=== PATIENT | female | born 1965 | race Caucasian/White ===

== ENCOUNTER 2022-06-23 15:49 | Inpatient (IN) | payer OTHER ==
[2022-06-23 17:01] VITALS: BMI 26.4
[2022-06-23] MEDS ORDERED: BENZOCAINE/MENTHOL (CHLORASEPTIC ) LOZENGE MM PRN (17:30)
[2022-06-23] MEDS ORDERED: MAG HYDROX/AL HYDROX/SIMETH 30 ML UNIT-DOSE CUP PO PRN (17:30)
[2022-06-23] MEDS ORDERED: NALOXONE HCL (KLOXXADO) 8 MG SPRAY NS PRN (17:30)
[2022-06-23] MEDS ORDERED: IBUPROFEN 600 MG TABLET (FP) PO PRN (17:30)
[2022-06-23] MEDS ORDERED: MAGNESIUM HYDROX 2400MG/30ML ORAL SUSPENSION 30 ML CUP PO PRN (17:30)
[2022-06-23] MEDS ORDERED: BISMUTH SUBSALICYLATE 524 MG/30 ML PO PRN (17:30)
[2022-06-23] MEDS ORDERED: POLYETHYLENE GLYCOL (HEALTHYLAX) 3350 17 GM PACKET PO PRN (17:30)
[2022-06-23] MEDS ORDERED: IBUPROFEN 400 MG TABLET (FP) PO PRN (17:30)
[2022-06-23] MEDS ORDERED: DICYCLOMINE HCL 10 MG CAPSULE PO PRN (17:30)
[2022-06-23] MEDS ORDERED: NICOTINE 10 MG CARTRIDGE (INHALER) IH PRN (17:30)
[2022-06-23] MEDS ORDERED: ONDANSETRON *ODT* 4 MG TABLET SL PRN (17:30)
[2022-06-23] MEDS ORDERED: ACETAMINOPHEN 325 MG TABLET (FP) PO PRN (17:30)
[2022-06-23] MEDS ORDERED: chlordiazePOXIDE HCL 25 MG CAPSULE ONE (18:31)
[2022-06-23] MEDS: chlordiazePOXIDE HCL 25 MG CAPSULE PO PRN (18:34)
[2022-06-23] MEDS: MELATONIN 5 MG TABLETS PO SCH (22:13)
[2022-06-23] MEDS: hydrOXYzine PAMOATE 25 MG CAPSULE (FP) PO PRN (22:14)
[2022-06-23] MEDS: THIAMINE HCL 100 MG TABLET (FP) PO SCH (22:14)
[2022-06-23] MEDS: chlordiazePOXIDE HCL 25 MG CAPSULE PO SCH (22:15)
[2022-06-24] MEDS: chlordiazePOXIDE HCL 25 MG CAPSULE PO SCH ×4 (05:36→22:25)
[2022-06-24] MEDS: NICOTINE 21 MG/24 HOURS TOPICAL PATCH TD SCH (10:07)
[2022-06-24] MEDS: PRENATAL VITAMINS W/ FOLIC ACID TABLET (FP) PO SCH (10:07)
[2022-06-24] MEDS: hydrOXYzine PAMOATE 25 MG CAPSULE (FP) PO PRN (10:07)
[2022-06-24] MEDS: chlordiazePOXIDE HCL 25 MG CAPSULE PO PRN (14:04)
[2022-06-24] MEDS: LOPERAMIDE HCL 2 MG CAPSULE PO PRN (14:16)
[2022-06-24 15:18] LABS: HEMATOCRIT 41.8 % (32.4-45.2); HEMOGLOBIN 14.4 GM/dL (10.7-15.3); MCH 36.4 pg (25.7-33.7); MCHC 34.4 g/dl (32.0-36.0); MEAN CELL VOLUME 105.9 fl (80-96); MEAN PLT VOLUME 7.7 fl (7.5-11.1); PLATELET COUNT 347 10^3/uL (134-434); RBC 3.95 M/mm3 (3.60-5.2); RDW 14.6 % (11.6-15.6); WHITE BLOOD COUNT 5.4 K/mm3 (4.0-10.0)
[2022-06-24 15:58] LABS: CALCIUM 9.2 mg/dL (8.5-10.1)
[2022-06-24 15:59] LABS: ALBUMIN 3.7 g/dl (3.4-5.0); BLOOD UREA NITROGEN 8.3 mg/dL (7-18)
[2022-06-24 16:02] LABS: CREATININE 0.6 mg/dL (0.55-1.3)
[2022-06-24 16:04] LABS: BILIRUBIN,TOTAL 0.9 mg/dL (0.2-1); TOT PROT 6.6 g/dl (6.4-8.2)
[2022-06-24] MEDS: THIAMINE HCL 100 MG TABLET (FP) PO SCH (22:25)
[2022-06-24] MEDS: MELATONIN 5 MG TABLETS PO SCH (22:25)
[2022-06-25] MEDS: chlordiazePOXIDE HCL 25 MG CAPSULE PO SCH ×5 (05:22→22:43)
[2022-06-25] MEDS: NICOTINE 21 MG/24 HOURS TOPICAL PATCH TD SCH (10:27)
[2022-06-25] MEDS: PRENATAL VITAMINS W/ FOLIC ACID TABLET (FP) PO SCH (10:27)
[2022-06-25] MEDS: LOPERAMIDE HCL 2 MG CAPSULE PO PRN (14:38)
[2022-06-25] MEDS: hydrOXYzine PAMOATE 25 MG CAPSULE (FP) PO PRN (18:20)
[2022-06-25] MEDS: THIAMINE HCL 100 MG TABLET (FP) PO SCH (22:42)
[2022-06-25] MEDS: MELATONIN 5 MG TABLETS PO SCH (22:42)
[2022-06-26] MEDS ORDERED: chlordiazePOXIDE HCL 10 MG CAPSULE PO PRN
[2022-06-26] MEDS: chlordiazePOXIDE HCL 10 MG CAPSULE PO SCH ×4 (05:31→22:20)
[2022-06-26] MEDS: PRENATAL VITAMINS W/ FOLIC ACID TABLET (FP) PO SCH (10:03)
[2022-06-26] MEDS: NICOTINE 21 MG/24 HOURS TOPICAL PATCH TD SCH (10:03)
[2022-06-26] MEDS: hydrOXYzine PAMOATE 25 MG CAPSULE (FP) PO PRN ×2 (10:07→18:42)
[2022-06-26] MEDS: ACETAMINOPHEN 325 MG TABLET (FP) PO PRN (14:26)
[2022-06-26] MEDS: THIAMINE HCL 100 MG TABLET (FP) PO SCH (22:20)
[2022-06-26] MEDS: MELATONIN 5 MG TABLETS PO SCH (22:20)
[2022-06-27] MEDS: chlordiazePOXIDE HCL 10 MG CAPSULE PO SCH ×2 (05:45→17:11)
[2022-06-27] MEDS: NICOTINE 21 MG/24 HOURS TOPICAL PATCH TD SCH (10:11)
[2022-06-27] MEDS: hydrOXYzine PAMOATE 25 MG CAPSULE (FP) PO PRN ×3 (10:11→22:11)
[2022-06-27] MEDS: PRENATAL VITAMINS W/ FOLIC ACID TABLET (FP) PO SCH (10:11)
[2022-06-27] MEDS: ACETAMINOPHEN 325 MG TABLET (FP) PO PRN (14:30)
[2022-06-27] MEDS: THIAMINE HCL 100 MG TABLET (FP) PO SCH (22:11)
[2022-06-27] MEDS: MELATONIN 5 MG TABLETS PO SCH (22:11)
[2022-06-28] MEDS ORDERED: chlordiazePOXIDE HCL 10 MG CAPSULE PO ONE (05:00)
[2022-06-28 07:22] VITALS: BP 114/72; PULSE 60; RESP 16; TEMP 98
[2022-06-28] MEDS: ACETAMINOPHEN 325 MG TABLET (FP) PO PRN (09:40)
[2022-06-28] MEDS: PRENATAL VITAMINS W/ FOLIC ACID TABLET (FP) PO SCH (09:41)
[2022-06-28] MEDS: NICOTINE 21 MG/24 HOURS TOPICAL PATCH TD SCH (09:41)
== END 2022-06-28 11:32 | disposition home or self-care (01) | DRG 775 ==
LOC: YASAS 15:49 → Y6N 17:50
PROVIDERS: ADMIT Allergy & Immunology; ATTEND Surgery
PROC: HZ2ZZZZ Detoxification Services for Substance Abuse Treatment (ICD-10-PCS; principal; 2022-06-23)
DX: F10.230 Alcohol dependence with withdrawal, uncomplicated (principal); F17.210 Nicotine dependence, cigarettes, uncomplicated; F10.280 Alcohol dependence with alcohol-induced anxiety disorder; F10.282 Alcohol dependence with alcohol-induced sleep disorder; F10.24 Alcohol dependence with alcohol-induced mood disorder; F31.9 Bipolar disorder, unspecified; F41.9 Anxiety disorder, unspecified; E78.5 Hyperlipidemia, unspecified; H90.0 Conductive hearing loss, bilateral; M15.9 Polyosteoarthritis, unspecified; Z96.652 Presence of left artificial knee joint; Z56.0 Unemployment, unspecified
CPT/HCPCS: 36415; 80053; 85027; 86780; 87811; C9803-CS; U0003; U0005

== ENCOUNTER 2023-06-10 14:07 | Emergency (ER) | payer OTHER ==
[2023-06-10] MEDS ORDERED: clonazePAM 0.5 MG TABLET ONE (15:27)
[2023-06-10] MEDS ORDERED: ACETAMINOPHEN INJECTION 100 ML IVPB ONE (15:27)
[2023-06-10] MEDS: clonazePAM 0.5 MG TABLET PO ONE (15:49)
[2023-06-10] MEDS: ACETAMINOPHEN 1000 MG/100 ML BAG IVPB ONE (15:49)
[2023-06-10] MEDS: SODIUM CHLORIDE 0.9% 500 ML INFUS.BAG IV ONE (15:49)
[2023-06-10] MEDS: methylPREDNISolone NA SUCC 125 MG/2 ML VIAL IVPB ONE ×2 (15:49→16:22)
[2023-06-10 15:55] LABS: BASO % 1.1 % (0-2.0); EOS % 1.6 % (0-4.5); HEMATOCRIT 44.1 % (32.4-45.2); HEMOGLOBIN 15.1 GM/dL (10.7-15.3); LYMPH % 39.9 % (8-40); MCH 33.6 pg (25.7-33.7); MCHC 34.2 g/dl (32.0-36.0); MEAN CELL VOLUME 98.3 fl (80-96); MONO % 6.6 % (3.8-10.2); NEUT % 50.8 % (42.8-82.8); PLATELET COUNT 343 10^3/uL (134-434); RBC 4.49 M/mm3 (3.60-5.2); RDW 13.1 % (11.6-15.6); WHITE BLOOD COUNT 8.3 K/mm3 (4.0-10.0)
[2023-06-10 16:00] LABS: VENOUS BASE EXCESS -1.4 mmol/L (-2-2); VENOUS O2 SATURATION 25.7 % (70-80); VENOUS PH 7.341 (7.310-7.410)
[2023-06-10 16:13] VITALS: RESP 21; BMI 37.5
[2023-06-10] MEDS ORDERED: HYDROCORTISONE SOD SUCCINATE 100 MG/2 ML VIAL ONE (16:14)
[2023-06-10 16:24] LABS: POTASSIUM 3.9 mmol/L (3.5-5.1)
[2023-06-10 16:26] LABS: CALCIUM 9.7 mg/dL (8.5-10.1)
[2023-06-10 16:27] LABS: ALBUMIN 4.2 g/dl (3.4-5.0); BLOOD UREA NITROGEN 5.2 mg/dL (7-18)
[2023-06-10 16:30] LABS: CREATININE 0.6 mg/dL (0.55-1.3)
[2023-06-10 16:32] LABS: BILIRUBIN,TOTAL 0.5 mg/dL (0.2-1); TOT PROT 7.8 g/dl (6.4-8.2)
[2023-06-10] MEDS ORDERED: ALBUTEROL SO4 2.5/IPRATROPIUM 0.5 INH SOL 3 ML VIAL.NEB. NEB ONE (16:37)
[2023-06-10] MEDS: ALBUTEROL SO4 2.5/IPRATROPIUM 0.5 INH SOL 3 ML VIAL.NEB. NEB SCH (16:54)
[2023-06-10 18:49] VITALS: BP 127/75; PULSE 97; TEMP 98.7
== END 2023-06-10 18:50 | disposition home or self-care (01) ==
LOC: JER 14:07
PROC: 3E033NZ Introduction of Analgesics, Hypnotics, Sedatives into Peripheral Vein, Percutaneous Approach (ICD-10-PCS; principal; 2023-06-10)
PROC: 3E033GC Introduction of Other Therapeutic Substance into Peripheral Vein, Percutaneous Approach (ICD-10-PCS; 2023-06-10)
PROC: 3E0F7GC Introduction of Other Therapeutic Substance into Respiratory Tract, Via Natural or Artificial Opening (ICD-10-PCS; 2023-06-10)
DX: R05.9 Cough, unspecified (principal); R42 Dizziness and giddiness; R06.2 Wheezing; Z20.822 Contact with and (suspected) exposure to COVID-19
CPT/HCPCS: 0241U-QW; 36415; 71045-TC-FY; 80053; 82803; 84484; 85025; 93005; 93010; 99285-25; J0131

== ENCOUNTER 2023-11-07 22:45 | Emergency (ER) | payer OTHER ==
[2023-11-07] MEDS ORDERED: ALBUTEROL SO4 2.5/IPRATROPIUM 0.5 INH SOL 3 ML VIAL.NEB. NEB ONE (22:51)
[2023-11-07 22:56] VITALS: BP 114/70; RESP 28; TEMP 97.4; BMI 28.3
[2023-11-07] MEDS ORDERED: CYCLOBENZAPRINE HCL 5 MG TABLET ONE (23:23)
[2023-11-07] MEDS: CYCLOBENZAPRINE HCL 10 MG TABLET (FP) PO ONE (23:37)
[2023-11-07 23:41] LABS: BASO % 0.8 % (0-2.0); EOS % 0.4 % (0-4.5); HEMATOCRIT 43.4 % (32.4-45.2); HEMOGLOBIN 14.9 GM/dL (10.7-15.3); LYMPH % 16.8 % (8-40); MCH 33.5 pg (25.7-33.7); MCHC 34.3 g/dl (32.0-36.0); MEAN CELL VOLUME 97.8 fl (80-96); MEAN PLT VOLUME 7.2 fl (7.5-11.1); PLATELET COUNT 307 10^3/uL (134-434); RBC 4.44 M/mm3 (3.60-5.2); VENOUS BASE EXCESS -3.4 mmol/L (-2-2); VENOUS O2 SATURATION 46.6 % (70-80); VENOUS PCO2 42.1 mmHg (38-52); VENOUS PH 7.34 (7.310-7.410); WHITE BLOOD COUNT 8.4 K/mm3 (4.0-10.0)
[2023-11-08] MEDS: BENZONATATE 200 MG CAPSULE PO ONE (00:03)
[2023-11-08 00:05] LABS: POTASSIUM 3.9 mmol/L (3.5-5.1)
[2023-11-08 00:07] LABS: ALBUMIN 3.8 g/dl (3.4-5.0); CALCIUM 8.9 mg/dL (8.5-10.1)
[2023-11-08 00:08] LABS: BLOOD UREA NITROGEN 5.9 mg/dL (7-18)
[2023-11-08 00:11] LABS: CREATININE 0.8 mg/dL (0.55-1.3)
[2023-11-08 00:12] LABS: BILIRUBIN,TOTAL 0.6 mg/dL (0.2-1); TOT PROT 7.4 g/dl (6.4-8.2)
[2023-11-08 00:16] LABS: N-TERMINAL BNP 67.1 pg/ml (5-125)
[2023-11-08 00:37] VITALS: PULSE 102
== END 2023-11-08 01:20 | disposition home or self-care (01) ==
LOC: JER 22:45
DX: R06.02 Shortness of breath (principal); R05.9 Cough, unspecified; R00.0 Tachycardia, unspecified; M54.9 Dorsalgia, unspecified; F41.9 Anxiety disorder, unspecified; Z20.822 Contact with and (suspected) exposure to COVID-19
CPT/HCPCS: 0241U-QW; 36415; 71046-TC-FY; 80053; 82803; 83735; 83880; 84484; 85025; 93005; 93010; 99285-25